=== PATIENT | male | born 1975 | race Caucasian/White ===

== ENCOUNTER 2017-01-22 17:36 | Emergency (ER) | payer BC ==
[~2017-01-22] VITALS: Ht 177.8 cm; Wt 113.0 kg
[2017-01-22 17:40] VITALS: BP 154/80; PULSE 88; RESP 16; TEMP 98.8; O2SAT 97
--- NOTE | 2017-01-22 18:14 | PD ---
HPI Chief Complaint: Skin Problem Time Seen by Provider: 17:55 Travel History International Travel<30 days: No Contact w/Intl Traveler<30days: No Traveled to known affect area: No History of Present Illness HPI 41-year-old male presents to the emergency room for evaluation of an abscess to his right axilla that started 10 days ago. Patient states it is progressively getting larger and more painful every day. States his noticed that it came to the head and started draining spontaneously today. He has history of abscesses but never in this location. No history of MRSA. Denies fever, chills , nausea, and vomiting. Unknown last tetanus. PFSH Past Medical History High Cholesterol: Yes Gastrointestinal Disorders: Yes (FATTY LIVER) Immunizations Current: Yes Tetanus Vaccination: > 5 Years Past Surgical History Genitourinary Surgery: Yes (VASECTOMY) Social History Alcohol Use: Yes (RARE) Tobacco Use: No (FORMER) Substance Use: No Allergies-Medications (Allergen,Severity, Reaction): Coded Allergies: No Known Allergies (Unverified , 01/22/17) Reported Meds & Prescriptions Reported Meds & Active Scripts Active No Active Prescriptions or Reported Medications Review of Systems Except as stated in HPI: all other systems reviewed are Neg Physical Exam Narrative GENERAL: Well-nourished, well-developed male in no acute distress. Afebrile. Ambulatory. SKIN: Focused skin assessment warm/dry. There is an indurated area in the right axilla which measures about 4 cm in diameter. It is fluctuant with pointing and spontaneous drainage. There is a zone of inflammation around it but no lymphangitis. HEAD: Normocephalic. EYES: No scleral icterus. No injection or drainage. NECK: Supple, trachea midline. No JVD or lymphadenopathy. CARDIOVASCULAR: Regular rate and rhythm without murmurs, gallops, or rubs. RESPIRATORY: Breath sounds equal bilaterally. No accessory muscle use. PSYCHIATRIC: No delusional thought processes. No hallucinations. Data Data Last Documented VS Vital Signs Date Time Temp Pulse Resp B/P Pulse Ox O2 Delivery O2 Flow Rate FiO2 01/22/17 17:40 98.8 88 16 154/80 97 MDM Medical Decision Making Medical Screen Exam Complete: Yes Emergency Medical Condition: Yes Medical Record Reviewed: Yes Differential Diagnosis Abscess, folliculitis, hidradenitis suppurativa, cellulitis Narrative Course 41-year-old male presents to the emergency room for evaluation of an abscess to his right arm that started 10 days ago and has been getting progressively larger and more painful. Vital signs stable. No history of fever. No lymphangitis. There is a 4 cm abscess that is spontaneously draining. No lymphangitis. It was drained and packed, see procedure note for details. Discharged with Bactrim and wound care instructions. Told to follow up with primary care physician or return for worsening symptoms. He understands and agrees to plan. Procedures Procedure Narrative INCISION AND DRAINAGE OF ABSCESS: The area was prepped and was sterilely draped. A subcutaneous wheal of 1% lidocaine with a total number 4 mL was used to anesthetize the area properly. A number 11 scalpel was used to make a 1 cm incision across the area of the abscess. The abscess was drained, complex loculations were broken down, and irrigated with normal saline. Cultures were obtained. Quarter inch iodoform packing was placed in the wound. Sterile dressing applied. Patient advised to have packing removed in two days. Diagnosis Primary Impression: Abscess of right axilla Referrals: Primary Care Physician Patient Instructions: Abscess (ED), General Instructions Additional Instructions: Rest and drink plenty of fluids. Take Bactrim as directed, until gone. Return to the emergency room in 2 days to have packing removed. If it falls out before, this is okay. Follow up with a primary care physician. Return to emergency room for worsening symptoms, as discussed. Med/Other Pt SpecificInfo: Prescription(s) given Scripts No Active Prescriptions or Reported Meds Disposition: 01 DISCHARGE HOME Condition: Stable Kira Henley Jan 22, 2017 18:14
[2017-01-22] MEDS ORDERED: LIDOCAINE HCL 1% PF 30 ML VIAL INFIL ONE (18:15)
[2017-01-22] MEDS ORDERED: BACT800T5 PO (18:28)
== END 2017-01-22 18:36 | disposition home or self-care (01) ==
LOC: PHEFT 17:36
DX: L02.411 Cutaneous abscess of right axilla (principal)
CPT/HCPCS: 10061; 87070; 87205